=== PATIENT | male | born 1950 | race Caucasian/White ===

== ENCOUNTER 2018-05-24 07:01 | Emergency (ER) | payer OTHER ==
[~2018-05-24] VITALS: Ht 182.9 cm; Wt 95.7 kg
[2018-05-24 07:45] LABS: Basophils # (auto) 0 uL; Basophils % (auto) 0.4 % (0.0-2.0); Eosinophils # (auto) 0 uL; Eosinophils % (auto) 0.6 % (0.0-7.0); Hematocrit 31.5 % (41.0-53.0); Hemoglobin 10.6 g/dL (13.5-17.5); Lymphocytes # (auto) 0.5 uL; Lymphocytes % (auto) 7.4 % (10.0-50.0); Mean Corpuscular Hemoglobin 31.4 pg (28.0-32.0); Mean Corpuscular Hgb Conc. 33.7 g/dL (32.0-36.0); Mean Corpuscular Volume 93.2 fL (80.0-100.0); Monocytes # (auto) 0.4 uL; Monocytes % (auto) 6.7 % (0.0-12.0); Neutrophils # (auto) 5.7 uL; Neutrophils % (auto) 84.9 % (37.0-80.0); Platelet Count (auto) 221 10^3/uL (140-450); Red Blood Cells 3.37 10^6/uL (4.5-5.90); Red Cell Distribution Width 16.8 % (11.8-14.3); White Blood Cell 6.7 10^3/uL (4.4-10.8)
[2018-05-24 07:57] LABS: Albumin 3.3 g/dL (3.4-5.0); Calcium 8.2 mg/dL (8.5-10.1); Potassium 3.8 mmol/L (3.5-5.1)
[2018-05-24 08:00] LABS: BUN/Creatinine Ratio 10.3; Bilirubin, Total 0.7 mg/dL (0.2-1.0); Total Protein 5.8 g/dL (6.4-8.2)
[2018-05-24 11:28] VITALS: BP 129/62
== END 2018-05-24 12:14 | disposition home or self-care (01) ==
LOC: EDBD 07:01 → EDSEX 07:01 → ER 07:01
DX: K80.20 Calculus of gallbladder without cholecystitis without obstruction (principal); I10 Essential (primary) hypertension; Z95.0 Presence of cardiac pacemaker; Z98.61 Coronary angioplasty status; Z88.1 Allergy status to other antibiotic agents; Z88.8 Allergy status to other drugs, medicaments and biological substances; Z91.018 Allergy to other foods
CPT/HCPCS: 36415; 74176; 80053; 83690; 85025; 93005

== ENCOUNTER 2020-06-21 07:11 | Emergency (ER) | payer OTHER ==
[~2020-06-21] VITALS: Ht 182.9 cm; Wt 88.9 kg
[2020-06-21 07:30] VITALS: BP 103/76
[2020-06-21] MEDS ORDERED: LIDOCAINE W/ EPINEPHRINE 1% 20ML VIAL ONE (07:43)
[2020-06-21] MEDS ORDERED: LIDOCAINE W/ EPINEPHRINE 1% 20ML VIAL ID ONE (07:45)
== END 2020-06-21 09:20 | disposition home or self-care (01) ==
LOC: ER 07:11
DX: Z48.00 Encounter for change or removal of nonsurgical wound dressing (principal); I10 Essential (primary) hypertension; Z88.8 Allergy status to other drugs, medicaments and biological substances
CPT/HCPCS: 71045

== ENCOUNTER 2021-02-27 05:14 | Emergency (ER) | payer OTHER ==
[~2021-02-27] VITALS: Ht 182.9 cm; Wt 79.4 kg
[2021-02-27] MEDS ORDERED: fentaNYL CITRATE 100 MCG/2 ML VL ONE (06:22)
[2021-02-27] MEDS ORDERED: fentaNYL CITRATE 100 MCG/2 ML VL IV ONE (06:30)
[2021-02-27] MEDS ORDERED: HYDROmorphone HCL 2 MG/ML VL IV ONE ×2 (07:00→10:30)
[2021-02-27] MEDS ORDERED: ONDANSETRON HCL 4 MG/2 ML VIAL IV ONE (07:00)
[2021-02-27 07:27] LABS: Basophils # (auto) 0 10 ^3/uL (0-0.2); Basophils % (auto) 0.5 % (0.0-2.0); Eosinophils # (auto) 0.1 10 ^3/uL (0-0.8); Eosinophils % (auto) 1.9 % (0.0-7.0); Hematocrit 30.8 % (41.0-53.0); Hemoglobin 10.4 g/dL (13.5-17.5); Lymphocytes # (auto) 0.4 10 ^3/uL (0.4-5.4); Lymphocytes % (auto) 8.9 % (10.0-50.0); Mean Corpuscular Hemoglobin 33.5 pg (28.0-32.0); Mean Corpuscular Hgb Conc. 33.9 g/dL (32.0-36.0); Mean Corpuscular Volume 98.9 fL (80.0-100.0); Monocytes # (auto) 0.3 10 ^3/uL (0-1.3); Neutrophils # (auto) 3.8 10 ^3/uL (1.6-8.6); Neutrophils % (auto) 82.7 % (37.0-80.0); Red Blood Cells 3.11 10^6/uL (4.5-5.90); Red Cell Distribution Width 16.6 % (11.8-14.3); White Blood Cell 4.6 10^3/uL (4.4-10.8)
[2021-02-27 07:35] LABS: INR 1.25 (0.9-1.15); Partial Thromboplastin Time 29.5 sec (23.6-33.0)
[2021-02-27 07:44] LABS: Potassium 3.3 mmol/L (3.5-5.1)
[2021-02-27 07:53] LABS: BUN/Creatinine Ratio 12.7; Bilirubin, Total 0.9 mg/dL (0.2-1.0); Calcium 7.5 mg/dL (8.5-10.1); Total Protein 5.7 g/dL (6.4-8.2)
[2021-02-27 14:15] VITALS: BP 109/66
== END 2021-02-27 15:07 | disposition short-term general hospital (02) ==
LOC: EDBD 05:14 → ER 05:14
DX: S72.001A Fracture of unspecified part of neck of right femur, initial encounter for closed fracture (principal); I10 Essential (primary) hypertension; Z86.73 Personal history of transient ischemic attack (TIA), and cerebral infarction without residual deficits; Z98.61 Coronary angioplasty status; Z88.1 Allergy status to other antibiotic agents; Z88.8 Allergy status to other drugs, medicaments and biological substances; W19.XXXA Unspecified fall, initial encounter; Y93.89 Activity, other specified; Y92.89 Other specified places as the place of occurrence of the external cause; Y99.8 Other external cause status
CPT/HCPCS: 36415; 70450; 71045; 72192; 73502; 80053; 83880; 84484; 85025; 85610; 85730; 87426; 93005; 96374; 96375; 96376; 99285; J1170; J2405; J3010

== ENCOUNTER 2021-09-06 00:30 | Emergency (ER) | payer OTHER ==
[~2021-09-06] VITALS: Ht 177.8 cm; Wt 68.0 kg
[2021-09-06] MEDS ORDERED: HYDROcodone-ACET 5/325MG TAB PO ONE (05:00)
[2021-09-06 06:13] VITALS: BP 155/60
== END 2021-09-06 06:28 | disposition home or self-care (01) ==
LOC: ER 00:30 → EDBD 00:30 → ER 06:28
DX: M25.551 Pain in right hip (principal); I10 Essential (primary) hypertension; Z86.73 Personal history of transient ischemic attack (TIA), and cerebral infarction without residual deficits; Z98.61 Coronary angioplasty status; Z88.1 Allergy status to other antibiotic agents; Z88.8 Allergy status to other drugs, medicaments and biological substances; W19.XXXA Unspecified fall, initial encounter; Y93.89 Activity, other specified; Y92.89 Other specified places as the place of occurrence of the external cause; Y99.8 Other external cause status
CPT/HCPCS: 72170; 93005